=== PATIENT | female | born 1945 | race Asian ===

== ENCOUNTER 2016-10-02 08:34 | Inpatient (IN) | payer OTHER ==
[~2016-10-02] VITALS: Ht 152.4 cm; Wt 66.6 kg
[2016-10-02] VITALS (7 sets, daily range): BP systolic 132–146; BP diastolic 64–79; PULSE 70–78; RESP 15–25; TEMP 98; Ht 152.4 cm; Wt 66.6 kg
[2016-10-02] MEDS ORDERED: ASPIRIN 325 MG TAB PO STA (09:01)
[2016-10-02] MEDS ORDERED: LEVALBUTEROL (NEB) 1.25 MG/0.5 ML AMP INH STA (09:04)
[2016-10-02 09:24] LABS: BASOPHIL # 0.1 10^3/ul (0.0-0.1); BASOPHILS % 0.9 % (0.0-2.0); EOSINOPHILS % 0.4 % (0.0-7.0); HEMATOCRIT 36.9 % (37.0-47.0); HEMOGLOBIN 12.5 g/dl (12.0-16.0); MEAN CORPUSCULAR HEMOGLOBIN 32.2 pg (29.0-33.0); MEAN CORPUSCULAR HGB CONC 33.9 g/dl (32.0-37.0); MEAN CORPUSCULAR VOLUME 95.1 fl (82.0-101.0); MONOCYTE # 0.5 10^3/ul (0.3-0.9); MONOCYTES % 7.4 % (0.0-11.0); NEUTROPHILS % 76.2 % (39.0-77.0); PLATELET COUNT 205 10^3/UL (140-415); RED BLOOD COUNT 3.88 10^6/ul (4.20-5.40); RED CELL DISTRIBUTION WIDTH 14.1 % (11.5-14.5); WHITE BLOOD COUNT 6.8 10^3/ul (4.8-10.8)
[2016-10-02] MEDS ORDERED: ENOXAPARIN 80 MG/0.8 ML SYG SC SCH (09:30)
[2016-10-02] MEDS ORDERED: DILTIAZEM 25 MG INJ IV ONE (09:30)
[2016-10-02] MEDS: DILTIAZEM-D5W 125MG/125ML DRIP 125 ML IV SCH (09:36)
--- NOTE | 2016-10-02 09:42 | RADRPT ---
PROCEDURE: XR Chest. CLINICAL INDICATION: Chest pain , CVA TECHNIQUE: Single frontal view of the chest was obtained COMPARISON: None FINDINGS: The heart is enlarged. The thoracic aorta is calcified. The lungs are clear. There is no pleural effusion or pneumothorax. RPTAT: AA IMPRESSION: Moderate cardiomegaly. Calcified aorta consistent with atherosclerotic disease. .Grover Gerardo MD, MD Date Time Electronically viewed and signed by .Grover Gerardo MD, on 10/02/2016 09:42 .S/
[2016-10-02 09:50] LABS: ALBUMIN 4.2 g/dl (3.3-4.9); ALBUMIN/GLOBULIN RATIO 1.13; BILIRUBIN,INDIRECT 0.9 mg/dl (0-1.1); BILIRUBIN,TOTAL 0.9 mg/dl (0.2-1.3); CALCIUM 8.9 mg/dl (8.4-10.2); POTASSIUM 4.9 mmol/L (3.5-5.1); TOTAL PROTEIN 7.9 g/dl (6.1-8.1)
[2016-10-02 10:05] LABS: TROPONIN-I 7.52 ng/ml (0.00-0.12)
[2016-10-02 10:18] LABS: INR 1.07; PROTIME 13.9 Sec (12.2-14.2); PT RATIO 1.1
--- NOTE | 2016-10-02 11:00 | RADRPT ---
PROCEDURE: CT brain without contrast CLINICAL INDICATION: Generalized weakness, possible stroke, right vision loss TECHNIQUE: CT of the brain without contrast performed on a multidetector CT scanner, with multiplan ar reformats. One or more of the following dose reduction techniques were used: Automated exposure control, adjustment in mA and / or kV according to patient size, use of iterative reconstructive melanie hnique. CTDIvol = 44 mGy; DLP = 630 mGy-cm. 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 No acute intracranial hemorrhage is identified. No ext ra-axial fluid collection is seen. No significant mass effect or midline shift is identified. The ventricles and sulci are mild to moderately enlarged compatible with volume loss. There is a small chronic cortical infarct in the right parietal lobe. Chronic lacunar infarcts are identified in the left guerra radiata region. There are mild areas of hypodensity in the periventri cular - deep white matter which are nonspecific but suggestive of chronic small vessel ischemic cerda ges. Atherosclerotic calcifications of the proximal intracranial arteries are noted. Calvarium and skull base are intact. Bilateral sphenoid sinus mucosal thickening noted. IMPRESSION: 1. 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 Further evaluation with MRI is advised. 2. No acute intracranial hemorrhage. 3. Small chronic right parietal infarct, and chronic left guerra radiata lacunar infarcts. 4. Mild to moderate volume loss, with mild chronic small vessel ischemic changes. Results called to Dr. Cramer at 10:55 a.m., 10/02/2016. RPTAT: VV .Kenneth Cummings MD, Date Time Electronically viewed and signed by .Kenneth Cummings MD, on 10/02/2016 11:00 .O/
--- NOTE | 2016-10-02 11:40 | ERA ---
ER Documentation Chief Complaint Date/Time DATE: 10/02/16 TIME: 11:34 Chief Complaint pt bib family with c/o "fast breathing, vision problems, not feeling well" HPI This is a 70-year-old female who complains that she had some right eye visual loss 2-3 days ago. She says things look blurry and somewhat hazy. She is also having palpitations off and on for the past 3-4 days. She says in general she does not feel well. She has had no cough denies any chest pain no abdominal pain no nausea vomiting diarrhea. Patient says she has heart problems but does not know what they are. The patient and family deny any known arrhythmias. She denies any speech change or focal distal neurological complaints such as weakness or numbness in her extremities. ROS All systems reviewed and are negative except as per history of present illness. Allergies Allergies: Coded Allergies: No Known Allergy (Unverified , 10/02/16) PMhx/Soc Hx Alcohol Use: No Hx Substance Use: No Hx Tobacco Use: No Smoking Status: Never smoker FmHx Family History: No coronary disease Physical Exam Vitals Vital Signs Date Time Temp Pulse Resp B/P Pulse Ox O2 Delivery O2 Flow Rate FiO2 10/02/16 11:07 2.0 10/02/16 11:07 75 18 96 Nasal Cannula 2.0 10/02/16 11:05 71 24 147/84 100 Nasal Cannula 2.0 10/02/16 10:35 68 24 162/75 100 Nasal Cannula 2.0 10/02/16 10:10 72 24 111/88 100 Nasal Cannula 2.0 10/02/16 09:41 Nasal Cannula 2 10/02/16 09:40 88 10/02/16 08:53 98.0 129 29 171/82 96 Room Air 10/02/16 08:38 98.0 62 28 148/72 94 Physical Exam Const: Well-developed, well-nourished Head: Atraumatic, normocephalic Eyes: Normal Conjunctiva, PERRLA, EOMI, normal sclera, no nystagmus, the right eye demonstrates blurry decreased vision ENT: Normal External Ears, Nose and Mouth, moist mucus membranes. Neck: Full range of motion. No meningismus, no lymphadenopathy. Resp: Clear to auscultation bilaterally, no wheezing, rhonchi, rales Cardio: Irregular rate and rhythm with a heart rate of 137, no murmurs, S1 S2 present Abd: Soft, non tender x 4, non distended. Normal bowel sounds, no guarding or rebound, no pulsitile abdominal masses or bruits Skin: No petechiae or rashes, no ecchymosis , no maculopapular rash Back: No midline or flank tenderness Ext: No cyanosis, or edema, FROM x 4, normal inspection, neurovascularly intact x 4 Neur: Awake and alert, STR 5/5 x 4, sensation intact x 4, no focal findings, cerebellum intact Psych: Normal Mood and Affect Result Diagram: 10/02/16 0915 10/02/16 0915 Results 24 hrs Laboratory Tests Test 10/02/16 09:15 10/02/16 09:34 White Blood Count 6.810^3/ul Red Blood Count 3.8810^6/ul Hemoglobin 12.5g/dl Hematocrit 36.9% Mean Corpuscular Volume 95.1fl Mean Corpuscular Hemoglobin 32.2pg Mean Corpuscular Hemoglobin Concent 33.9g/dl Red Cell Distribution Width 14.1% Platelet Count 20652^3/UL Mean Platelet Volume 10.0fl Neutrophils % 76.2% Lymphocytes % 15.0% Monocytes % 7.4% Eosinophils % 0.4% Basophils % 0.9% Nucleated Red Blood Cells % 0.0/100WBC Neutrophils # (Manual) 5.210^3/ul Lymphocytes # 1.010^3/ul Monocytes # 0.510^3/ul Eosinophils # 0.010^3/ul Basophils # 0.110^3/ul Nucleated Red Blood Cells # 0.010^3/ul Sodium Level 137mmol/L Potassium Level 4.9mmol/L Chloride Level 100mmol/L Carbon Dioxide Level 24mmol/L Anion Gap 18 Blood Urea Nitrogen 21mg/dl Creatinine 1.00mg/dl Glucose Level 101mg/dl Calcium Level 8.9mg/dl Total Bilirubin 0.9mg/dl Direct Bilirubin 0.00mg/dl Indirect Bilirubin 0.9mg/dl Aspartate Amino Transf (AST/SGOT) 68IU/L Alanine Aminotransferase (ALT/SGPT) 30IU/L Alkaline Phosphatase 64IU/L Troponin I 7.520ng/ml B-Type Natriuretic Peptide 6190PG/ML Total Protein 7.9g/dl Albumin 4.2g/dl Globulin 3.70g/dl Albumin/Globulin Ratio 1.13 Prothrombin Time 13.9Sec Prothrombin Time Ratio 1.1 INR International Normalized Ratio 1.07 Activated Partial Thromboplast Time 32.0Sec Current Medications Medications (Trade) Dose Ordered Sig/Jimena Route PRN Reason Start Time Stop Time Status Last Admin Dose Admin Aspirin (Aspirin) 325 mg ONCE STAT PO 10/02/16 09:01 10/02/16 09:04 DC 10/02/16 09:24 Diltiazem HCl 20 mg 20 mg ONCE ONCE IV 10/02/16 09:30 10/02/16 09:31 DC 10/02/16 09:26 Diltiazem HCl (Cardizem-D5W 125 Mg/125 ml Drip) 125 ml @ 0 mls/hr Q0M IV 10/02/16 09:30 10/02/16 09:36 Enoxaparin Sodium (Lovenox) 60 mg ONCE SC 10/02/16 09:30 10/02/16 09:29 Levalbuterol (Xopenex Neb) 1.25 mg ONCE STAT INH 10/02/16 09:04 10/02/16 09:05 DC 10/02/16 11:06 Procedures/MDM EKG: Rate/Rhythm: Atrial fibrillation with rapid ventricular response, left anterior fascicular block QRS, ST, QT: NORMAL AK, QRS, QT] Impression: A. fib with RVR PROCEDURE: CT brain without contrast CLINICAL INDICATION: Generalized weakness, possible stroke, right vision loss TECHNIQUE: CT of the brain without contrast performed on a multidetector CT scanner, with multiplanar reformats. One or more of the following dose reduction techniques were used: Automated exposure control, adjustment in mA and / or kV according to patient size, use of iterative reconstructive technique. CTDIvol = 44 mGy; DLP = 630 mGy-cm. COMPARISON: None available FINDINGS: There is an area of loss of moctezuma-white differentiation in the left occipital lobe in the TEARER territory, suspicious for an acute/recent infarct. No acute intracranial hemorrhage is identified. No extra-axial fluid collection is seen. No significant mass effect or midline shift is identified. The ventricles and sulci are mild to moderately enlarged compatible with volume loss. There is a small chronic cortical infarct in the right parietal lobe. Chronic lacunar infarcts are identified in the left guerra radiata region. There are mild areas of hypodensity in the periventricular - deep white matter which are nonspecific but suggestive of chronic small vessel ischemic changes. Atherosclerotic calcifications of the proximal intracranial arteries are noted. Calvarium and skull base are intact. Bilateral sphenoid sinus mucosal thickening noted. IMPRESSION: 1. Findings suspicious for acute/recent infarct in the left occipital lobe/TEARER territory. Further evaluation with MRI is advised. 2. No acute intracranial hemorrhage. 3. Small chronic right parietal infarct, and chronic left guerra radiata lacunar infarcts. 4. Mild to moderate volume loss, with mild chronic small vessel ischemic changes. Results called to Dr. Hayes at 10:55 a.m., 10/02/2016. RPTAT: VV .Kenneth Cummings MD, MD Date Time Electronically viewed and signed by .Kenneth Cummings MD, MD on 10/02/2016 11:00 .O/ CC: DARION HAYES DO PROCEDURE: XR Chest. CLINICAL INDICATION: Chest pain , CVA TECHNIQUE: Single frontal view of the chest was obtained COMPARISON: None FINDINGS: The heart is enlarged. The thoracic aorta is calcified. The lungs are clear. There is no pleural effusion or pneumothorax. RPTAT: AA IMPRESSION: Moderate cardiomegaly. Calcified aorta consistent with atherosclerotic disease. .Grover Gerardo MD, MD Date Time Electronically viewed and signed by .Grover Gerardo MD, MD on 10/02/2016 09: 42 .S/ CC: DARION HAYES DO Patient was given aspirin and Lovenox as well as Cardizem IV bolus and drip to control her heart rate. Patient is in A. fib and likely had a clot that was dislodged and went into her left occipital lobe creating the infarct. The patient's troponin is elevated however she denies any recent chest pain. This may just be from cardiac strain from being in A. fib for 3 or 4 days., And a rapid ventricular response. We will admit the patient for anticoagulation, she will need a SABRINA/cardiac echo , rate control for A. fib Critical Care Time: 35 minutes Treatments/Evaluations: Close monitoring and treatment of unstable vital signs, cardiorespiratory, and neurologic status, while maintaining tight balance of fluid, respiratory, and cardiac interventions. This time includes discussing the case with the patient and the patient's family. This time does not include all procedures stated elsewhere in this record. This time also includes reviewing old records, labs and radiological studies. This time includes examining and re-examining the patient. Additionally, this time also includes arranging care with admitting and consulting physicians. Departure Diagnosis: Primary Impression: Atrial fibrillation with rapid ventricular response Additional Impressions: Stroke Qualified Code: I63.40 - Cerebrovascular accident (CVA) due to embolism of cerebral artery Myocardial infarction Qualified Code: I21.4 - Non-ST elevation (NSTEMI) myocardial infarction Condition: DARION Aguilera DO Oct 02, 2016 11:40
[2016-10-02] MEDS ORDERED: SOD CHLORIDE 0.9% 1,000 ML IV SCH (13:08)
[2016-10-02] MEDS ORDERED: ACETAMINOPHEN 325 MG TAB PO PRN (13:30)
[2016-10-02] MEDS ORDERED: ONDANSETRON 4 MG INJ IV PRN ×2 (13:30→15:00)
[2016-10-02 13:31] LABS: CK-MB 20.3 ng/ml (0.0-2.4)
[2016-10-02] MEDS ORDERED: FUROSEMIDE 20 MG INJ IV ONE (14:30)
[2016-10-02] MEDS ORDERED: HEPARIN 1000 UNITS/ML 10 ML INJ IV PRN (14:30)
[2016-10-02] MEDS ORDERED: CLOP75TA27 PO (14:37)
[2016-10-02] MEDS ORDERED: TEMA15CA PO (14:37)
[2016-10-02] MEDS ORDERED: SIMV20TA PO (14:38)
[2016-10-02] MEDS ORDERED: DEXTROSE 5%-0.45% NACL 1,000 ML IV SCH (14:54)
--- NOTE | 2016-10-02 14:58 | CONS ---
Date/Time of Note Date/Time of Note DATE: 10/02/16 TIME: 14:46 Assessment/Plan Assessment/Plan Additional Assessment/Plan CVA, likely embolic Atrial fibrillation with rapid ventricular rates Non-ST elevation KS -Patient with newly diagnosed atrial fibrillation and as per family no known history of any cardiac issues in the past. Given CVA is likely embolic and patient also with concurrent myocardial infarction, if no contraindication, patient would benefit from anticoagulation. Patient has been given Lovenox this morning. Would start IV heparin therapy without a bolus if no contraindication. Continue aspirin therapy, high-dose statin therapy, beta- jennifer for heart rate control. Check echocardiogram, telemetry monitoring, serial cardiac enzymes, carotid Dopplers. Would give 1 dose of IV diuretics at the current time. Awaiting neurology evaluation. Consultation Date/Type/Reason Admit Date/Time Type of Consultation: cv Reason for Consultation Elevated troponin Hx of Present Illness This is a 70-year-old female who presents to the emergency room with multiple complaints. As per the grandson at bedside who is translating and lives with the patient, patient with symptoms of palpitations over the past 4-5 days and shortness of breath. Denies any chest pain or chest discomfort. Symptoms have been off and on over the past 4-5 days. Today, patient also with vision loss upon waking up. Because of the above symptoms, patient came to the emergency room for further evaluation and care. At the current time, she is feeling better. She still complains of vision loss but denies any chest discomfort. Shortness of breath has improved as well. Her palpitations have improved after therapy in the emergency room. On laboratory studies, patient with elevated troponin and for this reason cardiology consultation was requested. 12 point review of systems was performed with all pertinent positives and negatives mentioned above and all else is negative Past Medical History Medical History: high cholesterol Family History Significant Family History: no pertinent family hx Social History Alcohol Use: none Smoking Status: Never smoker Drug Use: none Other Social History Lives with family Exam/Review of Systems Vital Signs Vitals Vital Signs Date Time Temp Pulse Resp B/P Pulse Ox O2 Delivery O2 Flow Rate FiO2 10/02/16 14:06 74 18 141/82 100 Room Air 10/02/16 11:07 2.0 10/02/16 08:53 98.0 Exam Follows commands, no apparent distress, on facemask Constitutional: alert Head: normocephalic Respiratory: other (Coarse breath sounds bilaterally with minimal and expiratory wheezing) Cardiovascular: irregular rhythm, other (S1-S2 heard), systolic murmur Gastrointestinal: bowel sounds, non-tender, other (No guarding), soft Extremities: edema (Trace) Results Result Diagram: 10/02/1615 10/02/1615 Results 24 hrs Laboratory Tests Test 10/02/16 09:15 10/02/16 09:34 White Blood Count 6.8 Red Blood Count 3.88 L Hemoglobin 12.5 Hematocrit 36.9 L Mean Corpuscular Volume 95.1 Mean Corpuscular Hemoglobin 32.2 Mean Corpuscular Hemoglobin Concent 33.9 Red Cell Distribution Width 14.1 Platelet Count 205 Mean Platelet Volume 10.0 Neutrophils % 76.2 Lymphocytes % 15.0 Monocytes % 7.4 Eosinophils % 0.4 Basophils % 0.9 Nucleated Red Blood Cells % 0.0 Neutrophils # (Manual) 5.2 Lymphocytes # 1.0 Monocytes # 0.5 Eosinophils # 0.0 Basophils # 0.1 Nucleated Red Blood Cells # 0.0 Sodium Level 137 Potassium Level 4.9 Chloride Level 100 Carbon Dioxide Level 24 Anion Gap 18 H Blood Urea Nitrogen 21 H Creatinine 1.00 Glucose Level 101 Calcium Level 8.9 Total Bilirubin 0.9 Direct Bilirubin 0.00 Indirect Bilirubin 0.9 Aspartate Amino Transf (AST/SGOT) 68 H Alanine Aminotransferase (ALT/SGPT) 30 Alkaline Phosphatase 64 Creatine Kinase 391 H Creatinine Kinase MB (Mass) 20.30 H Troponin I 7.520 *H B-Type Natriuretic Peptide 6190 H Total Protein 7.9 Albumin 4.2 Globulin 3.70 H Albumin/Globulin Ratio 1.13 Prothrombin Time 13.9 Prothrombin Time Ratio 1.1 INR International Normalized Ratio 1.07 Activated Partial Thromboplast Time 32.0 Medications Medications Current Medications Diltiazem HCl (Cardizem-D5W 125 Mg/125 ml Drip) 125 ml @ 0 mls/hr Q0M IV Last administered on 10/02/16 09:36; Admin Dose 5 MLS/HR; Start 10/02/16 at 09:30 Enoxaparin Sodium (Lovenox) 60 mg ONCE SC Last administered on 10/02/16 09:29 ; Admin Dose 60 MG; Start 10/02/16 at 09:30; Stop 10/02/16 at 19:00 Miscellaneous Information (* Miscellaneous Pharmacy Order) DC previous hepa... ONCE ONCE XX ; Start 10/02/16 at 14:30; Stop 10/02/16 at 14:31; Status UNV Aspirin (Aspirin) 81 mg DAILY PO ; Start 10/03/16 at 09:00 Atorvastatin Calcium (Lipitor) 80 mg HS PO ; Start 10/02/16 at 21:00 Metoprolol Tartrate (Lopressor) 25 mg BID PO ; Start 10/02/16 at 21:00 Procedures Procedures ECG demonstrates atrial fibrillation at 103 bpm, QRS 82 ms, nonspecific T-wave abnormalities Mayito Bull DO Oct 02, 2016 14:57
[2016-10-02] MEDS ORDERED: hydrALAzine 20 MG INJ IV PRN (15:00)
[2016-10-02] MEDS ORDERED: NACL 0.9% 3 ML SYG IV SCH (15:00)
[2016-10-02] MEDS ORDERED: morphine 2 MG INJ IV PRN (15:00)
[2016-10-02] MEDS: PANTOPRAZOLE 40 MG INJ IV SCH (15:17)
--- NOTE | 2016-10-02 15:26 | HP ---
Date/Time of Note Date/Time of Note DATE: 10/02/16 TIME: 15:10 Assessment/Plan VTE Prophylaxis VTE Prophylaxis Intervention: heparin Lines/Catheters IV [facility]from [facility] [place] Assessment/Plan Chief Complaint/Hosp Course Patient is a 70-year-old high female who presents to [facility] complaining of palpitations and right eye blurriness, found to have subacute CVA and NSTEMI. Problem list and assessment Non-ST elevated LA Left occipital lobe\ART MODEL CVA, acute versus subacute Atrial fibrillation with RVR, controlled New onset right eye vision loss, resolving Elevated troponin Elevated BNP Small chronic right parietal infarct Chronic left guerra radiata lacunar infarct Plan -Cardiology and neurology has been consulted. Heparin drip and serial troponins as well as imaging has been ordered by cardiology. Neurology input also appreciated, MRI and MRA ordered. -Patient's A. fib with RVR, on heparin, rate controlled on diltiazem drip, heading to the ICU -N.p.o. until patient passes swallow study -Continue home meds as able -Starting coronary artery disease medications per cardiology -To be cautious with fluids given elevated BNP -Vision is improving, monitor closely -Bilateral sphenoid sinus mucosal thickening noted, will correlate and possibly start antibiotics for possible acute sinusitis Problems: HPI/ROS Admit Date/Time Admit Date/Time Hx of Present Illness Patient is a 70-year-old Sharad female who presents with a past medical history of hypertension and dyslipidemia complaining of new onset right-sided blurry vision as well as palpitations on and off for the past 4-5 days. Patient according to family members has no history of heart palpitations and does not know any other of her medications or her medical conditions. Patient did have some medications at bedside and is able to provide the name of her primary care provider,Dr. Goldberg. The patient states that although the palpitations have been on and off, she has no chest pain at this time, also states that patient's new onset blurry vision which began approximately 4 AM this morning has significantly improved, however patient is not able to see as clear as before still. Currently the patient is not short of breath, no chest pain, no nausea, no vomiting, no other acute complaints PMH: Hypertension, dyslipidemia, insomnia PSH: None Social: Denies smoking drinking or drugs Meds: Plavix 75 mg, simvastatin 20 mg, temazepam 15 mg as needed for sleep PMH/Family/Social Past Medical History Medical History: high cholesterol Social History Alcohol Use: none Smoking Status: Never smoker Drug Use: none Exam/Review of Systems Vital Signs Vitals Vital Signs Date Time Temp Pulse Resp B/P Pulse Ox O2 Delivery O2 Flow Rate FiO2 10/02/16 14:06 74 18 141/82 100 Room Air 10/02/16 11:07 2.0 10/02/16 08:53 98.0 Exam Exam Physical exam General: Patient is laying in bed and answers questions appropriately Mentation: Patient is alert and oriented 4, Head: Normocephalic atraumatic Eyes: EOMI, Neck: Supple, nontender, midline Respiratory: coarse to auscultation bilaterally. Cardiovascular: regular rate, no obvious murmurs Gastrointestinal: non-tender to palpation, bowel sounds heard. Neurological: Moves all extremities spontaneously, but R UE and LE is mildly weaker than L. Skin: No new skin lesions Labs Result Diagram: 10/02/1691410/02/16914 Medications Medications Current Medications Diltiazem HCl (Cardizem-D5W 125 Mg/125 ml Drip) 125 ml @ 0 mls/hr Q0M IV Last administered on 10/02/16 09:36; Admin Dose 5 MLS/HR; Start 10/02/16 at 09:30 Enoxaparin Sodium (Lovenox) 60 mg ONCE SC Last administered on 10/02/16 09:29 ; Admin Dose 60 MG; Start 10/02/16 at 09:30; Stop 10/02/16 at 19:00 Miscellaneous Information (* Miscellaneous Pharmacy Order) DC previous hepa... ONCE ONCE XX ; Start 10/02/16 at 14:30; Stop 10/02/16 at 14:31; Status UNV Aspirin (Aspirin) 81 mg DAILY PO ; Start 10/03/16 at 09:00 Atorvastatin Calcium (Lipitor) 80 mg HS PO ; Start 10/02/16 at 21:00 Metoprolol Tartrate 25 mg 25 mg BID PO ; Start 10/02/16 at 21:00 Dextrose/Sodium Chloride (D5-1/2ns) 1,000 ml @ 40 mls/hr Q24H IV ; Start at 14:54; Status UNV Ondansetron HCl (Zofran Inj) 4 mg Q6H PRN IV NAUSEA AND/OR VOMITING; Start at 15:00 Morphine Sulfate (morphine) 2 mg Q4H PRN IV SEVERE PAIN LEVEL 7-10; Start 10/02 at 15:00 Pantoprazole (Protonix Iv) 40 mg DAILY@06 IV ; Start 10/02/16 at 15:00 Hydralazine HCl (Apresoline) 10 mg Q4H PRN IV SBP >160; Start 10/02/16 at 15:00 Clopidogrel Bisulfate (plaVIX) 75 mg DAILY PO ; Start 10/03/16 at 09:00; Status UNV Miscellaneous Information 15 mg HS PRN PO INSOMNIA; Start 10/02/16 at 15:00; Status UNV MITZY STARKEY Oct 02, 2016 15:20
--- NOTE | 2016-10-02 16:23 | RADRPT ---
PROCEDURE: US Carotids. CLINICAL INDICATION: bruit , CVA TECHNIQUE: Multiple sonographic of the carotid bifurcation region and vertebral arteries were obta ined utilizing moctezuma scale, duplex and color-flow imaging. The images were reviewed on a PACS worksta tion. COMPARISON: No prior studies are available for comparison. FINDINGS: Evaluation of the right carotid bifurcation region reveals no significant calcific atherosclerotic d isease. . There is mild intimal thickening. Evaluation of the left carotid bifurcation region reveals no significant calcific atherosclerotic di sease. . There is mild intimal thickening. There is antegrade flow within the vertebral arteries bilaterally. RIGHT CAROTID MEASUREMENTS: Common Carotid Tdjzbw98.9 (cm/sec) Internal Carotid Artery - [id number] (cm/sec) Internal Carotid Artery - mid41.7 (cm/sec) Internal Carotid Artery - ediqfu58.8 (cm/sec) Internal Carotid/Common Carotid1.27 LEFT CAROTID MEASUREMENTS: Common Carotid Aibezh35 (cm/sec) Internal Carotid Artery - qzydqctz64.2 (cm/sec) Internal Carotid Artery - mid73.7 (cm/sec) Internal Carotid Artery - .4 (cm/sec) Internal Carotid/Common Carotid2.35 RPTAT: AA IMPRESSION: Increased internal carotid to common carotid ratio on the left, with no significantly increased velo cities. A 50-69% stenosis cannot be excluded. Further evaluation with CT angiogram is recommended. - validated velocity measurements with angiographic measurements, velocity criteria are extrapolat ed from diameter data as defined by the Society of Radiologists in Ultrasound Consensus Conference R adiology 2003; 229;340-346. This study does indirectly reference the measurement of the distal ICA diameter as the denominator for stenosis measurement. Normal antegrade flow in the vertebral arteries bilaterally. .Grover Gerardo MD, MD Date Time Electronically viewed and signed by .Grover Gerardo MD, MD on 10/02/2016 16:23 .S/
--- NOTE | 2016-10-02 16:58 | RADRPT ---
Echocardiogram Report Patient Name: MERY MATHEWS Gender: Female Date: 1945 Study Date: 02-Oct-2016 Director Of Physical Security: Yury Escamilla [facility] Location: [facility] Ref. Physician: MAYITO BULL Quality: Good Procedures: Transthoracic echocardiogram with complete 2D, M-Mode, and doppler examination. Indications: Myocardial Infarction. 2D/M Mode Doppler Measurement Value Normal Ranges Measurement Value Normal Ranges LVIDd 2D 4.9 3.5 - 5.6 cm AV Peak Isaias 1.4 m/sec LVIDs 2D 3.2 2.1 - 4.1 cm AV Peak PG 8.0 mmHg LVPWd 2D 1.1 0.6 - 1.1 cm AI Peak PG 85.3 mmHg IVSd 2D 1.2 0.6 - 1.1 cm AI Peak Isaias 4.6 m/sec AoR Diam 2D 2.4 2.0 - 3.7 cm AI PHT 472.4 msec EDV 2D 112.2 cm3 LVOT Peak Isaias 0.7 m/sec ESV 2D 32.2 cm3 LVOT Peak PG 2.2 mmHg LA Dimen 2D 4.5 2.3 - 4.0 cm TR Peak Isaias 2.8 m/sec TR Peak PG 31.8 mmHg RVSP 40.0 mmHg Findings Left Ventricle: Normal left ventricular cavity size. Mild concentric left ventricular hypertrophy. Moderate to severe left ventricular systolic dysfunction. Ejection fraction is visually estimated at 35 %. Abnormal Diastolic Function. Right Ventricle: Normal right ventricular size. Normal right ventricular systolic function. Left Atrium: There is moderate enlargement of left atrium. Right Atrium: There is mild enlargement of right atrium. Mitral Valve: Mitral valve leaflets appear mildly thickened. Mild mitral annular calcification. Mild to moderate mitral valve regurgitation. Aortic Valve: No hemodynamically significant aortic stenosis by doppler. Aortic cusps appear mildly calcified. Mild aortic valve regurgitation. Tricuspid Valve: Normal appearance of the tricuspid valve. Estimated peak PA systolic pressure 40 mmHg. There is mild to moderate tricuspid regurgitation. Pulmonic Valve: Normal pulmonic valve appearance. There is mild pulmonic regurgitation. Pericardium: Normal pericardium with no significant pericardial effusion. Aorta: Normal aortic root. IVC: Normal size and no respiratory collapse consistent with elevated right atrial pressure. Conclusions 1.Normal left ventricular cavity size. Mild concentric left ventricular hypertrophy. Moderate to severe left ventricular systolic dysfunction. Ejection fraction is visually estimated at 35 %. Abnormal Diastolic Function. 2.Normal right ventricular size. Normal right ventricular systolic function. 3.There is moderate enlargement of left atrium. 4.There is mild enlargement of right atrium. 5.Mild to moderate mitral valve regurgitation. 6.No hemodynamically significant aortic stenosis by doppler. Mild aortic valve regurgitation. 7.Estimated peak PA systolic pressure 40 mmHg. There is mild to moderate tricuspid regurgitation. 8.There is mild pulmonic regurgitation. 9.Normal pericardium with no significant pericardial effusion. Electronically Signed By: Mayito Bull 02-Oct-2016 16:57:45 -0700 Patient Name: MERY MATHEWS Study Date: 02-Oct-2016 [id number]
[2016-10-02] MEDS ORDERED: LEVOFLOXACIN 500MG/D5W (PMX) 100 ML IVPB ONE (17:00)
[2016-10-02 17:01] LABS: BASOPHIL # 0.1 10^3/ul (0.0-0.1); EOSINOPHILS % 0.4 % (0.0-7.0); HEMATOCRIT 36.8 % (37.0-47.0); HEMOGLOBIN 12.6 g/dl (12.0-16.0); LYMPHOCYTES # 1.5 10^3/ul (0.8-2.9); LYMPHOCYTES % 21.8 % (15.0-51.0); MEAN CORPUSCULAR HGB CONC 34.2 g/dl (32.0-37.0); MEAN CORPUSCULAR VOLUME 96.3 fl (82.0-101.0); MONOCYTE # 0.5 10^3/ul (0.3-0.9); MONOCYTES % 7.7 % (0.0-11.0); NEUTROPHILS % 68.8 % (39.0-77.0); PLATELET COUNT 205 10^3/UL (140-415); RED BLOOD COUNT 3.82 10^6/ul (4.20-5.40); RED CELL DISTRIBUTION WIDTH 14.3 % (11.5-14.5); WHITE BLOOD COUNT 6.9 10^3/ul (4.8-10.8)
[2016-10-02 17:17] LABS: INR 1.17; PARTIAL THROMBOPLASTIN TIME 38.7 Sec (25.0-35.0); PT RATIO 1.2
[2016-10-02 17:31] LABS: CK-MB 48.4 ng/ml (0.0-2.4)
[2016-10-02 17:37] LABS: TROPONIN-I 19.1 ng/ml (0.00-0.12)
[2016-10-02] MEDS: HEPARIN 25000 UNITS/250 ML 250 ML IV SCH (18:58)
[2016-10-02] MEDS ORDERED: NON-FORMULARY/PATIENT OWN MED (Simvastatin* (Zocor*) 20 MG) PO SCH (21:00)
[2016-10-02] MEDS: METOPROLOL 25 MG TAB PO SCH (23:18)
[2016-10-02] MEDS: ATORVASTATIN 80 MG TAB PO SCH (23:19)
[2016-10-03] VITALS (68 sets, daily range): BP systolic 107–153; BP diastolic 45–106; PULSE 56–90; RESP 15–35
[2016-10-03] MEDS: ZOLPIDEM 5 MG TAB PO PRN ×2 (02:02→22:22)
[2016-10-03] MEDS: PANTOPRAZOLE 40 MG INJ IV SCH (05:17)
[2016-10-03] MEDS: DILTIAZEM-D5W 125MG/125ML DRIP 125 ML IV SCH (05:18)
[2016-10-03 05:49] LABS: BASOPHIL # 0.1 10^3/ul (0.0-0.1); BASOPHILS % 0.9 % (0.0-2.0); EOSINOPHILS % 0.6 % (0.0-7.0); HEMATOCRIT 35.2 % (37.0-47.0); HEMOGLOBIN 11.8 g/dl (12.0-16.0); LYMPHOCYTES # 1.2 10^3/ul (0.8-2.9); LYMPHOCYTES % 18.5 % (15.0-51.0); MEAN CORPUSCULAR HEMOGLOBIN 31.7 pg (29.0-33.0); MEAN CORPUSCULAR HGB CONC 33.5 g/dl (32.0-37.0); MEAN CORPUSCULAR VOLUME 94.6 fl (82.0-101.0); MEAN PLATELET VOLUME 10.5 fl (7.4-10.4); MONOCYTE # 0.5 10^3/ul (0.3-0.9); MONOCYTES % 7.6 % (0.0-11.0); NEUTROPHILS % 72.2 % (39.0-77.0); PLATELET COUNT 216 10^3/UL (140-415); RED BLOOD COUNT 3.72 10^6/ul (4.20-5.40); RED CELL DISTRIBUTION WIDTH 14.4 % (11.5-14.5); WHITE BLOOD COUNT 6.6 10^3/ul (4.8-10.8)
[2016-10-03 06:06] LABS: CK-MB 27.8 ng/ml (0.0-2.4)
[2016-10-03 06:13] LABS: ALBUMIN 3.7 g/dl (3.3-4.9); ALBUMIN/GLOBULIN RATIO 1.19; BILIRUBIN,INDIRECT 1.5 mg/dl (0-1.1); BILIRUBIN,TOTAL 1.5 mg/dl (0.2-1.3); CALCIUM 8.8 mg/dl (8.4-10.2); CHOL/HDL RATIO 1.9 RATIO; POTASSIUM 4.4 mmol/L (3.5-5.1); TOTAL PROTEIN 6.8 g/dl (6.1-8.1)
[2016-10-03 06:30] LABS: TROPONIN-I 16.7 ng/ml (0.00-0.12)
[2016-10-03 06:56] LABS: THYROID STIMULATING HORMONE 3.47 MIU/L (0.465-4.680)
[2016-10-03 07:14] LABS: ALBUMIN 3.9 g/dl (3.3-4.9); BILIRUBIN,INDIRECT 1.4 mg/dl (0-1.1); BILIRUBIN,TOTAL 1.4 mg/dl (0.2-1.3); TOTAL PROTEIN 7.2 g/dl (6.1-8.1)
[2016-10-03] MEDS ORDERED: CLOPIDOGREL 75 MG TAB PO SCH (09:00)
[2016-10-03] MEDS: HEPARIN 25000 UNITS/250 ML 250 ML IV SCH (09:25)
--- NOTE | 2016-10-03 10:47 | RADRPT ---
PROCEDURE: MR Brain without contrast. CLINICAL INDICATION: Neurologic deficit TECHNIQUE: An MRI of the brain was performed on a high-resolution MR scanner utilizing the followi ng sequences: Sagittal and axial T1 weighted, axial T2 weighted, axial FLAIR, coronal GRE, and axial diffusion weighted with ADC mapping. Images were reviewed high-resolution PACS workstation. No con trast was administered. COMPARISON: Correlation head CT yesterday FINDINGS: No acute parenchymal hemorrhage or midline shift. Cortical diffusion restriction of the bilateral oc cipital lobes and right posterior temporal lobe. Additional smaller scattered foci of diffusion res triction identified in the left frontal lobe, bilateral parietal lobes, and bilateral cerebellar hem ispheres. Chronic lacunar infarcts of the left guerra radiata are seen. Chronic right parietal apurva ical infarct. Scattered subcortical, deep, and periventricular white matter T2-weighted/FLAIR hyperintensities are consistent with chronic microvascular ischemic disease. No suspicious parenchymal hypointense sign al abnormalities are seen on the GRE images to suggest the presence of blood degradation products. The ventricles are stable size with mild volume loss noted.. Bilateral sphenoid sinus mucosal thickening. IMPRESSION: Acute cortical infarcts of the bilateral occipital lobes and right posterior temporal lobe with patricia tional smaller acute infarcts in the left frontal lobe, bilateral parietal lobes, and bilateral cere bellar hemispheres. The findings may be due to a recent embolic event. Chronic microvascular disease. Chronic right parietal cortical infarct and chronic left guerra radiata lacunar infarcts. Mild volume loss. A call report was made to LIBRARIAN ASSISTANT MANUEL at 10/03/2016 10:45:13 AM. RPTAT: AA .Jeffrey Hameed MD, Date Time Electronically viewed and signed by .Jeffrey Hameed MD, MD on 10/03/2016 10:47 .T/
[2016-10-03] MEDS: METOPROLOL 25 MG TAB PO SCH ×2 (11:01→20:26)
[2016-10-03] MEDS: ASPIRIN 81 MG TAB PO SCH (11:01)
--- NOTE | 2016-10-03 11:23 | RADRPT ---
PROCEDURE: MRA Head without contrast. CLINICAL INDICATION: Neurologic deficit TECHNIQUE: MRA of the brain was performed utilizing 3-D [id number] imaging without intravenous contrast. Source and MIP images were reviewed. COMPARISON: None available. FINDINGS: Limited flow signal in the left internal carotid artery, left MCA and bilateral CELIO. No significant focal proximal stenosis or large vessel occlusion of the right intracranial ICA or right MCA. There is no significant focal proximal stenosis or large vessel occlusion of the bilateral intradural hitesh tebral artery segments, basilar artery, or bilateral SUPERVISING BAILIFF. No aneurysm is identified. IMPRESSION: Limited flow signal in the left internal carotid artery, left MCA and bilateral CELIO likely related t o proximal left ICA high-grade stenosis or occlusion. Consider CT angiogram head and neck for furthe r evaluation. No evidence of significant stenosis or large vessel occlusion of the posterior circulation. RPTAT: AA .Jeffrey Hameed MD, Date Time Electronically viewed and signed by .Jeffrey Hameed MD, on 10/03/2016 11:23 .T/
--- NOTE | 2016-10-03 14:34 | PN ---
Date/Time of Note Date/Time of Note DATE: 10/03/16 TIME: 14:28 Assessment/Plan VTE Prophylaxis VTE Prophylaxis Intervention: heparin Lines/Catheters IV [facility] Type [facility]from [facility] Peripheral IV Urinary Cath still in place: No Assessment/Plan Chief Complaint/Hosp Course Patient is a 70-year-old high female who presents to [facility] complaining of palpitations and right eye blurriness, found to have CVA and NSTEMI. Problem list and assessment Non-ST elevated SD Acute bilateral occipital lobe and right posterior temporal lobe infarct. Small acute infarcts in left frontal lobe, bilateral parietal lobes, and bilateral cerebral hemispheres. Atrial fibrillation with RVR, controlled New onset right eye vision loss, resolving Elevated troponin Elevated BNP Small chronic right parietal infarct Chronic left guerra radiata lacunar infarct sinus wall thickening, possible sinusitis Plan -Cardiology saw patient, started on heparin drip, due to distribution on MRI likely cardioembolic origin, echo has been done, troponins have elevated severely, however patient has no chest pain. Patient will need cardiac cath. On hold for now as patient is likely pending transfer. -Neurology also saw patient, suggested stopping Plavix, okay with heparin with aspirin. CT and MRI noted -MRA showed possible stenosis of the carotid artery, ultrasound carotid also showed evidence, CT angiogram will be held off as it will not change current management and may be done at transferred facility, risk of kidney damage with contrast noted will hold off for now. -Keep in the ICU as patient had severely elevated troponins, downtrending -Continue home medications as able -Monitor and repeat labs in the morning -levaquin for sinusitis Problems: Subjective 24 Hr Interval Summary Free Text/Dictation no acute complaints, R eye blurriness has improved from yesterday Exam/Review of Systems Vital Signs Vitals Vital Signs Date Time Temp Pulse Resp B/P Pulse Ox O2 Delivery O2 Flow Rate FiO2 10/03/16 13:15 78 15 117/100 98 10/03/16 13:00 Nasal Cannula 1.0 10/03/16 12:00 98.3 Intake and Output 10/02/16 10/02/16 10/03/16 15:00 23:00 07:00 Intake Total 12 ml 60.0 ml Output Total 350 ml Balance 12 ml -290.0 ml Exam Physical exam General: Patient is laying in bed and answers questions appropriately Mentation: Patient is alert and oriented 4, Head: Normocephalic atraumatic Eyes: EOMI, Neck: Supple, nontender, midline Respiratory: coarse to auscultation bilaterally. Cardiovascular: regular rate, no obvious murmurs Gastrointestinal: non-tender to palpation, bowel sounds heard. Neurological: Moves all extremities spontaneously, but R UE and LE is mildly weaker than L. Skin: No new skin lesions Results Result Diagram: 10/03/16 0456 10/03/16 0456 Results 24 hrs Laboratory Tests Test 10/02/16 16:55 10/03/16 00:48 10/03/16 03:15 10/03/16 04:56 White Blood Count 6.9 6.6 Red Blood Count 3.82 L 3.72 L Hemoglobin 12.6 11.8 L Hematocrit 36.8 L 35.2 L Mean Corpuscular Volume 96.3 94.6 Mean Corpuscular Hemoglobin 33.0 31.7 Mean Corpuscular Hemoglobin Concent 34.2 33.5 Red Cell Distribution Width 14.3 14.4 Platelet Count 205 216 Mean Platelet Volume 10.0 10.5 H Neutrophils % 68.8 72.2 Lymphocytes % 21.8 18.5 Monocytes % 7.7 7.6 Eosinophils % 0.4 0.6 Basophils % 1.0 0.9 Nucleated Red Blood Cells % 0.0 0.0 Neutrophils # (Manual) 4.7 4.8 Lymphocytes # 1.5 1.2 Monocytes # 0.5 0.5 Eosinophils # 0.0 0.0 Basophils # 0.1 0.1 Nucleated Red Blood Cells # 0.0 0.0 Prothrombin Time 15.0 H Prothrombin Time Ratio 1.2 INR International Normalized Ratio 1.17 Activated Partial Thromboplast Time 38.7 H > 180.0 *H 77.6 *H 47.9 H Creatine Kinase 644 #H 496 H Creatine Kinase Index 7.5 5.6 Creatinine Kinase MB (Mass) 48.40 H 27.80 H Troponin I 19.100 *H 16.700 *H Sodium Level 138 Potassium Level 4.4 Chloride Level 96 L Carbon Dioxide Level 27 Anion Gap 19 H Blood Urea Nitrogen 19 Creatinine 1.00 Glucose Level 93 Calcium Level 8.8 Total Bilirubin 1.5 H Direct Bilirubin 0.00 Indirect Bilirubin 1.5 H Aspartate Amino Transf (AST/SGOT) 116 H Alanine Aminotransferase (ALT/SGPT) 38 Alkaline Phosphatase 55 Total Protein 6.8 Albumin 3.7 Globulin 3.10 Albumin/Globulin Ratio 1.19 Triglycerides Level 66 Cholesterol Level 103 LDL Cholesterol, Calculated 37 HDL Cholesterol 53 Cholesterol/HDL Ratio 1.9 Thyroid Stimulating Hormone (TSH) 3.470 Free Thyroxine Index 2.21 Thyroxine (T4) 4.6 L Triiodothyronine (T3) Uptake 48.0 H Test 10/03/16 11:29 Activated Partial Thromboplast Time 54.3 H Medications Medications Current Medications Diltiazem HCl (Cardizem-D5W 125 Mg/125 ml Drip) 125 ml @ 0 mls/hr Q0M IV Last administered on 10/03/16 05:18; Admin Dose 2.5 MLS/HR; Start 10/02/16 at 09:30 Aspirin (Aspirin) 81 mg DAILY PO Last administered on 10/03/16 11:01; Admin Dose 81 MG; Start 10/03/16 at 09:00 Atorvastatin Calcium (Lipitor) 80 mg HS PO Last administered on 10/02/16 23:19 ; Admin Dose 80 MG; Start 10/02/16 at 21:00 Metoprolol Tartrate (Lopressor) 25 mg BID PO Last administered on 10/03/16 11: 01; Admin Dose 25 MG; Start 10/02/16 at 21:00 Ondansetron HCl (Zofran Inj) 4 mg Q6H PRN IV NAUSEA AND/OR VOMITING; Start at 15:00 Morphine Sulfate (morphine) 2 mg Q4H PRN IV SEVERE PAIN LEVEL 7-10; Start 10/02 at 15:00 Hydralazine HCl (Apresoline) 10 mg Q4H PRN IV SBP >160; Start 10/02/16 at 15:00 Zolpidem Tartrate 5 mg 5 mg HS PRN PO INSOMNIA Last administered on 10/03/16 02:02; Admin Dose 5 MG; Start 10/02/16 at 15:30 Levofloxacin/ Dextrose (Levaquin 250 Mg/ D5W 50 ml (Pmx)) 50 ml @ 50 mls/hr Q24H IVPB ; Start 10/03/16 at 17:00 Famotidine (Pepcid Iv) 20 mg DAILY IV ; Start 8/17/17 at 09:00 MITZY STARKEY 16, 2017 14:34
--- NOTE | 2016-10-03 14:36 | CONS ---
Date/Time of Note Date/Time of Note DATE: 10/03/16 TIME: 14:33 Assessment/Plan Assessment/Plan Additional Assessment/Plan CVA, likely embolic Atrial fibrillation with rapid ventricular rates, improved Cardiomyopathy with ejection fraction 35% Non-ST elevation [place] -Patient currently with down trending troponins. Denies chest pain or shortness of breath. MRI brain shows multiple areas of CVA likely secondary to embolic phenomenon. In discussion with our neurology colleagues, would continue anticoagulation with plan of transitioning heparin to Eliquis in the next few days. Continue aspirin therapy, high-dose statin, beta-jennifer for rate control once past the period of permissive hypertension, would switch Lopressor to Coreg and add JONAH inhibitor. Given patient with acute CVA and downtrending troponin with no further symptoms of shortness of breath or chest pain, the risks of cardiac catheterization at the current time outweigh the benefits. Consultation Date/Type/Reason Admit Date/Time Oct 02, 2016 at 13:09 Initial Consult Date Type of Consultation: cv 24 HR Interval Summary Free Text/Dictation Patient denies any shortness of breath, chest pain, palpitations. Vision is improving. Exam/Review of Systems Vital Signs Vitals Vital Signs Date Time Temp Pulse Resp B/P Pulse Ox O2 Delivery O2 Flow Rate FiO2 10/03/16 13:15 78 15 117/100 98 10/03/16 13:00 Nasal Cannula 1.0 10/03/16 12:00 98.3 Intake and Output 10/02/16 10/02/16 10/03/16 15:00 23:00 07:00 Intake Total 12 ml 60.0 ml Output Total 350 ml Balance 12 ml -290.0 ml Exam No apparent distress, family at bedside Constitutional: alert, oriented Head: normocephalic Respiratory: other (Coarse breath sounds bilaterally, no wheezing) Cardiovascular: irregular rhythm, other (S1-S2 heard) Gastrointestinal: bowel sounds, non-tender, soft Extremities: edema Results Result Diagram: 10/03/16 0456 10/03/16 0456 Results 24 hrs Laboratory Tests Test 10/02/16 16:55 10/03/16 00:48 10/03/16 03:15 10/03/16 04:56 White Blood Count 6.9 6.6 Red Blood Count 3.82 L 3.72 L Hemoglobin 12.6 11.8 L Hematocrit 36.8 L 35.2 L Mean Corpuscular Volume 96.3 94.6 Mean Corpuscular Hemoglobin 33.0 31.7 Mean Corpuscular Hemoglobin Concent 34.2 33.5 Red Cell Distribution Width 14.3 14.4 Platelet Count 205 216 Mean Platelet Volume 10.0 10.5 H Neutrophils % 68.8 72.2 Lymphocytes % 21.8 18.5 Monocytes % 7.7 7.6 Eosinophils % 0.4 0.6 Basophils % 1.0 0.9 Nucleated Red Blood Cells % 0.0 0.0 Neutrophils # (Manual) 4.7 4.8 Lymphocytes # 1.5 1.2 Monocytes # 0.5 0.5 Eosinophils # 0.0 0.0 Basophils # 0.1 0.1 Nucleated Red Blood Cells # 0.0 0.0 Prothrombin Time 15.0 H Prothrombin Time Ratio 1.2 INR International Normalized Ratio 1.17 Activated Partial Thromboplast Time 38.7 H > 180.0 *H 77.6 *H 47.9 H Creatine Kinase 644 #H 496 H Creatine Kinase Index 7.5 5.6 Creatinine Kinase MB (Mass) 48.40 H 27.80 H Troponin I 19.100 *H 16.700 *H Sodium Level 138 Potassium Level 4.4 Chloride Level 96 L Carbon Dioxide Level 27 Anion Gap 19 H Blood Urea Nitrogen 19 Creatinine 1.00 Glucose Level 93 Calcium Level 8.8 Total Bilirubin 1.5 H Direct Bilirubin 0.00 Indirect Bilirubin 1.5 H Aspartate Amino Transf (AST/SGOT) 116 H Alanine Aminotransferase (ALT/SGPT) 38 Alkaline Phosphatase 55 Total Protein 6.8 Albumin 3.7 Globulin 3.10 Albumin/Globulin Ratio 1.19 Triglycerides Level 66 Cholesterol Level 103 LDL Cholesterol, Calculated 37 HDL Cholesterol 53 Cholesterol/HDL Ratio 1.9 Thyroid Stimulating Hormone (TSH) 3.470 Free Thyroxine Index 2.21 Thyroxine (T4) 4.6 L Triiodothyronine (T3) Uptake 48.0 H Test 10/03/16 11:29 Activated Partial Thromboplast Time 54.3 H Medications Medications Current Medications Diltiazem HCl (Cardizem-D5W 125 Mg/125 ml Drip) 125 ml @ 0 mls/hr Q0M IV Last administered on 10/03/16t 05:18; Admin Dose 2.5 MLS/HR; Start 10/02/16 at 09:30 Aspirin (Aspirin) 81 mg DAILY PO Last administered on 10/03/16 11:01; Admin Dose 81 MG; Start 10/03/16 at 09:00 Atorvastatin Calcium (Lipitor) 80 mg HS PO Last administered on 10/02/16 23:19 ; Admin Dose 80 MG; Start 10/02/16 at 21:00 Metoprolol Tartrate (Lopressor) 25 mg BID PO Last administered on 10/03/16 11: 01; Admin Dose 25 MG; Start 10/02/16 at 21:00 Ondansetron HCl (Zofran Inj) 4 mg Q6H PRN IV NAUSEA AND/OR VOMITING; Start at 15:00 Morphine Sulfate (morphine) 2 mg Q4H PRN IV SEVERE PAIN LEVEL 7-10; Start 10/02 at 15:00 Hydralazine HCl (Apresoline) 10 mg Q4H PRN IV SBP >160; Start 10/02/16 at 15:00 Zolpidem Tartrate 5 mg 5 mg HS PRN PO INSOMNIA Last administered on 10/03/16 02:02; Admin Dose 5 MG; Start 10/02/16 at 15:30 Levofloxacin/ Dextrose (Levaquin 250 Mg/ D5W 50 ml (Pmx)) 50 ml @ 50 mls/hr Q24H IVPB ; Start 10/03/16 at 17:00 Famotidine (Pepcid Iv) 20 mg DAILY IV ; Start 10/04/16 at 09:00 Mayito Bull DO Oct 03, 2016 14:36
--- NOTE | 2016-10-03 15:46 | RADRPT ---
PROCEDURE: MRA Neck without contrast. CLINICAL INDICATION: Neurologic deficit TECHNIQUE: An MRA of the major cervical arteries was performed on a utilizing axial 3D time of fli t . No IV contrast was given as ordered. Source and MIPPED images were reviewed. COMPARISON: Correlation carotid neck ultrasound 10/02/2016 FINDINGS: The common carotid and vertebral arterial origins are obscured by artifact. No significant stenosis of the mid to distal segment of the bilateral common carotid arteries. No significant stenosis of the right cervical internal carotid artery. Absence of flow signal of the left cervical internal ca rotid artery. The visualized portions of the bilateral cervical vertebral arteries show normal flow signal. IMPRESSION: No flow signal seen within the proximal left internal carotid artery concerning for high-grade steno sis or occlusion. Consider CT angiogram head and neck for further evaluation. No other significant cervical arterial stenosis identified. RPTAT: AA .Jeffrey Hameed MD, Date Time Electronically viewed and signed by .Jeffrey Hameed MD, on 10/03/2016 11:28 .T/
--- NOTE | 2016-10-03 17:55 | CONS ---
Date/Time of Note Date/Time of Note DATE: 10/03/16 TIME: 17:47 Assessment/Plan Assessment/Plan Chief Complaint/Hosp Course 70 yo female with cardioembolic CVA, newly diagnosed afib with bilateral HIGHER EDUCATION ADMINISTRATOR territory infarcts , bilateral frontal and bilateral cerebellar on heparin drip and antiplatelets, NSTEMI, troponins now trending down. MRI Brain and MRA Head reviewed. Acute cortical infarcts of the bilateral occipital lobes and right posterior temporal lobe with additional smaller acute infarcts in the left frontal lobe, bilateral parietal lobes, and bilateral cerebellar hemispheres. The findings may be due to a recent embolic event. Chronic microvascular disease. Chronic right parietal cortical infarct and chronic left guerra radiata lacunar infarcts. Mild volume loss. Limited flow signal in the left internal carotid artery, left MCA and bilateral CELIO likely related to proximal left ICA high-grade stenosis or occlusion. Recommendations: continue heparin drip pTT 50-60 no bolus continue for a few days and close neurologic monitoring will transition to Apixaban ECHO LDL at goal, check HBA1C recommend checking CTA Head/Neck to evaluate for Left ICA stenosis although etiology of this stroke appears to be likely secondary to cardioembolism DVT ppx on heparin PT/OT/Speech c/w icu level monitoring Problems: Consultation Date/Type/Reason Admit Date/Time Oct 02, 2016 at 13:09 Date of Consultation: Oct 03, 2016 Type of Consultation: Neurology Reason for Consultation cva Referring Provider: MITZY STARKEY Hx of Present Illness 70 yo female admitted yesterday with palpitations 4-5 days with SOB, with right visual field loss upon awakening on the date of admission with newly diagnosed afib with RVR and NSTEMI. Troponin on admission 7 --> 16 --> 16. CTH suggestive of a left HIGHER EDUCATION ADMINISTRATOR infarction. She was started on heparin drip goal pTT 50-60 no bolus and antiplatelet agent, admitted to ICU for further care, stable overnight. vision loss palpitations SOB Past Medical History Medical History: high cholesterol Social History Alcohol Use: none Smoking Status: Never smoker Drug Use: none Exam/Review of Systems Vital Signs Vitals Vital Signs Date Time Temp Pulse Resp B/P Pulse Ox O2 Delivery O2 Flow Rate FiO2 10/03/16 17:30 87 24 149/80 97 10/03/16 17:00 Nasal Cannula 10/03/16 13:00 1.0 10/03/16 12:00 98.3 Intake and Output 10/02/16 10/02/16 10/03/16 15:00 23:00 07:00 Intake Total 12 ml 60.0 ml Output Total 350 ml Balance 12 ml -290.0 ml Exam awake alert oriented to self hospital right visuospatial neglect and field cut no aphasia following commands CN: NARESH, right field cut, right facial droop, tongue midline Motor: right arm and leg drift to bed can maintain for few seconds left is intact FTN poor cooperation Results Result Diagram: 10/03/16 0456 10/03/16 0456 Results 24 hrs Laboratory Tests Test 10/03/16 00:48 10/03/16 03:15 10/03/16 04:56 10/03/16 11:29 Activated Partial Thromboplast Time > 180.0 *H 77.6 *H 47.9 H 54.3 H White Blood Count 6.6 Red Blood Count 3.72 L Hemoglobin 11.8 L Hematocrit 35.2 L Mean Corpuscular Volume 94.6 Mean Corpuscular Hemoglobin 31.7 Mean Corpuscular Hemoglobin Concent 33.5 Red Cell Distribution Width 14.4 Platelet Count 216 Mean Platelet Volume 10.5 H Neutrophils % 72.2 Lymphocytes % 18.5 Monocytes % 7.6 Eosinophils % 0.6 Basophils % 0.9 Nucleated Red Blood Cells % 0.0 Neutrophils # (Manual) 4.8 Lymphocytes # 1.2 Monocytes # 0.5 Eosinophils # 0.0 Basophils # 0.1 Nucleated Red Blood Cells # 0.0 Sodium Level 138 Potassium Level 4.4 Chloride Level 96 L Carbon Dioxide Level 27 Anion Gap 19 H Blood Urea Nitrogen 19 Creatinine 1.00 Glucose Level 93 Calcium Level 8.8 Total Bilirubin 1.5 H Direct Bilirubin 0.00 Indirect Bilirubin 1.5 H Aspartate Amino Transf (AST/SGOT) 116 H Alanine Aminotransferase (ALT/SGPT) 38 Alkaline Phosphatase 55 Creatine Kinase 496 H Creatine Kinase Index 5.6 Creatinine Kinase MB (Mass) 27.80 H Troponin I 16.700 *H Total Protein 6.8 Albumin 3.7 Globulin 3.10 Albumin/Globulin Ratio 1.19 Triglycerides Level 66 Cholesterol Level 103 LDL Cholesterol, Calculated 37 HDL Cholesterol 53 Cholesterol/HDL Ratio 1.9 Thyroid Stimulating Hormone (TSH) 3.470 Free Thyroxine Index 2.21 Thyroxine (T4) 4.6 L Triiodothyronine (T3) Uptake 48.0 H Medications Medications Current Medications Aspirin (Aspirin) 81 mg DAILY PO Last administered on 10/03/16 11:01; Admin Dose 81 MG; Start 10/03/16 at 09:00 Atorvastatin Calcium (Lipitor) 80 mg HS PO Last administered on 10/02/16 23:19 ; Admin Dose 80 MG; Start 10/02/16 at 21:00 Metoprolol Tartrate (Lopressor) 25 mg BID PO Last administered on 10/03/16 11: 01; Admin Dose 25 MG; Start 10/02/16 at 21:00 Ondansetron HCl (Zofran Inj) 4 mg Q6H PRN IV NAUSEA AND/OR VOMITING; Start at 15:00 Morphine Sulfate (morphine) 2 mg Q4H PRN IV SEVERE PAIN LEVEL 7-10; Start 10/02 at 15:00 Hydralazine HCl (Apresoline) 10 mg Q4H PRN IV SBP >160; Start 10/02/16 at 15:00 Zolpidem Tartrate 5 mg 5 mg HS PRN PO INSOMNIA Last administered on 10/03/16 02:02; Admin Dose 5 MG; Start 10/02/16 at 15:30 Levofloxacin/ Dextrose (Levaquin 250 Mg/ D5W 50 ml (Pmx)) 50 ml @ 50 mls/hr Q24H IVPB ; Start 10/03/16 at 17:00 Famotidine (Pepcid Iv) 20 mg DAILY IV ; Start 10/04/16 at 09:00 LILIAN WALTER MD Oct 03, 2016 17:55
[2016-10-03] MEDS: LEVOFLOXACIN 250MG/D5W (PMX) 50 ML IVPB SCH (18:38)
[2016-10-03] MEDS: ATORVASTATIN 80 MG TAB PO SCH (20:25)
[2016-10-03] MEDS ORDERED: SOD CHLORIDE 0.9% 100 ML ONE (20:58)
[2016-10-03] MEDS ORDERED: IOHEXOL 100 ML ONE (20:58)
[2016-10-03] MEDS ORDERED: IOHEXOL 350MG/ML 50 ML BTL ONE (20:58)
[2016-10-04] VITALS (23 sets, daily range): BP systolic 117–155; BP diastolic 60–90; PULSE 71–91; RESP 15–27
[2016-10-04 05:17] LABS: BASOPHIL # 0.1 10^3/ul (0.0-0.1); BASOPHILS % 1.1 % (0.0-2.0); EOSINOPHILS # 0.1 10^3/ul (0.0-0.5); EOSINOPHILS % 1.2 % (0.0-7.0); HEMATOCRIT 35.5 % (37.0-47.0); HEMOGLOBIN 11.6 g/dl (12.0-16.0); LYMPHOCYTES # 1.7 10^3/ul (0.8-2.9); MEAN CORPUSCULAR HEMOGLOBIN 30.9 pg (29.0-33.0); MEAN CORPUSCULAR HGB CONC 32.7 g/dl (32.0-37.0); MEAN CORPUSCULAR VOLUME 94.7 fl (82.0-101.0); MONOCYTE # 0.6 10^3/ul (0.3-0.9); MONOCYTES % 8.9 % (0.0-11.0); NEUTROPHILS % 63.6 % (39.0-77.0); PLATELET COUNT 206 10^3/UL (140-415); RED BLOOD COUNT 3.75 10^6/ul (4.20-5.40); RED CELL DISTRIBUTION WIDTH 14.4 % (11.5-14.5); WHITE BLOOD COUNT 6.6 10^3/ul (4.8-10.8)
[2016-10-04 05:36] LABS: ALBUMIN 3.6 g/dl (3.3-4.9); BILIRUBIN,INDIRECT 1.6 mg/dl (0-1.1); BILIRUBIN,TOTAL 1.6 mg/dl (0.2-1.3); TOTAL PROTEIN 6.5 g/dl (6.1-8.1)
[2016-10-04 05:45] LABS: CALCIUM 8.6 mg/dl (8.4-10.2); CREATININE 1.1 mg/dl (0.44-1.00); MAGNESIUM 2.2 mg/dl (1.7-2.5); PHOSPHORUS 3.8 mg/dl (2.5-4.9); POTASSIUM 3.9 mmol/L (3.5-5.1)
[2016-10-04] MEDS: ASPIRIN 81 MG TAB PO SCH ×2 (08:09→08:22)
[2016-10-04] MEDS: METOPROLOL 25 MG TAB PO SCH (08:10)
[2016-10-04] MEDS ORDERED: FAMOTIDINE 20 MG INJ IV SCH (09:00)
--- NOTE | 2016-10-04 09:56 | DS ---
Date/Time of Note Date/Time of Note DATE: 10/04/16 TIME: 09:52 Discharge Summary Admission/Discharge Info Admit Date/Time Oct 02, 2016 at 13:09 Discharge Date/Time Patient Condition: Stable Hx of Present Illness Patient is a 70-year-old Belgian female who presents with a past medical history of hypertension and dyslipidemia complaining of new onset right-sided blurry vision as well as palpitations on and off for the past 4-5 days. Patient according to family members has no history of heart palpitations and does not know any other of her medications or her medical conditions. Patient did have some medications at bedside and is able to provide the name of her primary care provider,Dr. Goldberg. The patient states that although the palpitations have been on and off, she has no chest pain at this time, also states that patient's new onset blurry vision which began approximately 4 AM this morning has significantly improved, however patient is not able to see as clear as before still. Currently the patient is not short of breath, no chest pain, no nausea, no vomiting, no other acute complaints PMH: Hypertension, dyslipidemia, insomnia PSH: None Social: Denies smoking drinking or drugs Meds: Plavix 75 mg, simvastatin 20 mg, temazepam 15 mg as needed for sleep Hospital Course Patient is a 70-year-old Belgian female who presented originally to [facility] complaining of palpitations and right eye blurriness. 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 Patient was also found to have atrial fibrillation with RVR that was controlled with diltiazem. Cardiology and neurology were consulted. Cardiology trend troponins which went up to 16 before downtrending, patient had no chest pain or shortness of breath during this entire encounter. Upon discussion with cardiology and neurology it is believed that the patient had emboli resulting from patient's paroxysmal atrial fibrillation which may have showered into her coronary arteries and her brain. Upon initial evaluation it was stated that the A. fib was new onset, however upon speaking with her primary care physician , she was found to have atrial fibrillation in [facility] many years ago however anticoagulation was not chosen due to a fall risk as patient does have a history of frequent falls. This the CVA was found after getting a CT and MRI of the brain. Also done was a carotid Doppler which showed possible 50-69% stenosis of the internal carotid on the left and a neck MRA was also done which also showed evidence of possible left carotid high-grade stenosis or occlusion. CT angio neck was done overnight however results are pending at this time. Patient's original complaint of palpitations have resolved since admission and blurry vision in the right eye has subsequently improved day by day. Patient was put on a trial of levofloxacin due to signs of possible sinusitis seen on CT , and possible involvement with patient's blurry vision, will be discontinued upon transfer as current signs and symptoms do not correlate with sinusitis. Patient was scheduled for cardiac cath however due to insurance reasons patient will be transferred to another facility where she should receive cardiac cath based on the recommendations of our blending coordinator due to her significantly elevated troponin level. She should also get continued neurological care. Discharge Diagnosis Non-ST elevated [place] Acute bilateral occipital lobe and right posterior temporal lobe infarct. Small acute infarcts in left frontal lobe, bilateral parietal lobes, and bilateral cerebral hemispheres. Atrial fibrillation with RVR, controlled New onset right eye vision loss, resolving Elevated troponin Elevated BNP Small chronic right parietal infarct Chronic left guerra radiata lacunar infarct sinus wall thickening, possible sinusitis ECHO 1. Normal left ventricular cavity size. Mild concentric left ventricular hypertrophy. Moderate to severe left ventricular systolic dysfunction. Ejection fraction is visually estimated at 35 %. Abnormal Diastolic Function. 2. Normal right ventricular size. Normal right ventricular systolic function. 3. There is moderate enlargement of left atrium. 4. There is mild enlargement of right atrium. 5. Mild to moderate mitral valve regurgitation. 6. No hemodynamically significant aortic stenosis by doppler. Mild aortic valve regurgitation. 7. Estimated peak PA systolic pressure 40 mmHg. There is mild to moderate tricuspid regurgitation. 8. There is mild pulmonic regurgitation. 9. Normal pericardium with no significant pericardial effusion. Miguel MRI FINDINGS: No acute parenchymal hemorrhage or midline shift. Cortical diffusion restriction of the bilateral occipital lobes and right posterior temporal lobe. Additional smaller scattered foci of diffusion restriction identified in the left frontal lobe, bilateral parietal lobes, and bilateral cerebellar hemispheres. Chronic lacunar infarcts of the left guerra radiata are seen. Chronic right parietal cortical infarct. Scattered subcortical, deep, and periventricular white matter T2-weighted/FLAIR hyperintensities are consistent with chronic microvascular ischemic disease. No suspicious parenchymal hypointense signal abnormalities are seen on the GRE images to suggest the presence of blood degradation products. The ventricles are stable size with mild volume loss noted.. Bilateral sphenoid sinus mucosal thickening. IMPRESSION: Acute cortical infarcts of the bilateral occipital lobes and right posterior temporal lobe with additional smaller acute infarcts in the left frontal lobe, bilateral parietal lobes, and bilateral cerebellar hemispheres. The findings may be due to a recent embolic event. Chronic microvascular disease. Chronic right parietal cortical infarct and chronic left guerra radiata lacunar infarcts. Mild volume loss. Neck MRA The common carotid and vertebral arterial origins are obscured by artifact. No significant stenosis of the mid to distal segment of the bilateral common carotid arteries. No significant stenosis of the right cervical internal carotid artery. Absence of flow signal of the left cervical internal carotid artery. The visualized portions of the bilateral cervical vertebral arteries show normal flow signal. IMPRESSION: No flow signal seen within the proximal left internal carotid artery concerning for high-grade stenosis or occlusion. Consider CT angiogram head and neck for further evaluation. No other significant cervical arterial stenosis identified. Home Meds Reported Medications Simvastatin* (Zocor*) 20 Mg Tablet, 20 MG PO QHS, #30 TAB 10/02/16 Clopidogrel Bisulfate (Clopidogrel) 75 Mg Tablet, 75 MG PO DAILY, #30 TAB 10/02/16 Temazepam* (Temazepam*) 15 Mg Capsule, 15 MG PO HS Y for INSOMNIA, CAP 10/02/16 Primary Care Provider Jeffrey Goldberg Time spent on discharge: > 30 minutes Pending Labs Laboratory Tests Test 10/03/16 11:29 10/03/16 19:10 10/04/16 00:50 10/04/16 04:15 Activated Partial Thromboplast Time 54.3Sec (25.0-35.0) 98.0Sec (25.0-35.0) 74.8Sec (25.0-35.0) Total Bilirubin 1.6mg/dl (0.2-1.3) Direct Bilirubin 0.00mg/dl (0.00-0.20) Indirect Bilirubin 1.6mg/dl (0-1.1) Aspartate Amino Transf (AST/SGOT) 77IU/L (15-46) Alanine Aminotransferase (ALT/SGPT) 32IU/L (13-69) Alkaline Phosphatase 53IU/L (42-121) Total Protein 6.5g/dl (6.1-8.1) Albumin 3.6g/dl (3.3-4.9) Test 10/04/16 04:50 10/04/16 07:15 White Blood Count 6.610^3/ul (4.8-10.8) Red Blood Count 3.7510^6/ul (4.20-5.40) Hemoglobin 11.6g/dl (12.0-16.0) Hematocrit 35.5% (37.0-47.0) Mean Corpuscular Volume 94.7fl (82.0-101.0) Mean Corpuscular Hemoglobin 30.9pg (29.0-33.0) Mean Corpuscular Hemoglobin Concent 32.7g/dl (32.0-37.0) Red Cell Distribution Width 14.4% (11.5-14.5) Platelet Count 11099^3/UL (140-415) Mean Platelet Volume 10.0fl (7.4-10.4) Neutrophils % 63.6% (39.0-77.0) Lymphocytes % 25.0% (15.0-51.0) Monocytes % 8.9% (0.0-11.0) Eosinophils % 1.2% (0.0-7.0) Basophils % 1.1% (0.0-2.0) Nucleated Red Blood Cells % 0.0/100WBC (0.0-0.0) Neutrophils # (Manual) 4.210^3/ul (1.7-7.5) Lymphocytes # 1.710^3/ul (0.8-2.9) Monocytes # 0.610^3/ul (0.3-0.9) Eosinophils # 0.110^3/ul (0.0-0.5) Basophils # 0.110^3/ul (0.0-0.1) Nucleated Red Blood Cells # 0.010^3/ul (0.0-0.0) Sodium Level 134mmol/L (135-144) Potassium Level 3.9mmol/L (3.5-5.1) Chloride Level 100mmol/L (97-110) Carbon Dioxide Level 27mmol/L (21-31) Anion Gap 11 (8-16) Blood Urea Nitrogen 18mg/dl (7-20) Creatinine 1.10mg/dl (0.44-1.00) Glucose Level 83mg/dl (70-220) Calcium Level 8.6mg/dl (8.4-10.2) Phosphorus Level 3.8mg/dl (2.5-4.9) Magnesium Level 2.2mg/dl (1.7-2.5) Activated Partial Thromboplast Time 81.0Sec (25.0-35.0) MITZY STARKEY Oct 04, 2016 09:56
--- NOTE | 2016-10-04 10:57 | RADRPT ---
PROCEDURE: CT Angiogram of the head and neck with intravenous contrast CLINICAL INDICATION: Left internal carotid artery stenosis. COMPARISON: MRA 10/03/2016. Ultrasound 10/02/2016. TECHNIQUE: CT angiogram of the head and neck was obtained. Sagittal and coronal reformations and ma ximum intensity projection reconstructions were provided. Images were obtained before and after the uneventful administration of 110 mL Omnipaque 350 intravenous contrast. Direct measurements of vesse l diameters was made in reference to measurements of the distal internal carotid artery diameter. DOSE: The estimated administered radiation dose was CTDI vol = 41, 16 mGy. DLP = 627 mGy-cm. One or more of the following dose reduction techniques were used: automated exposure control, adjustment o f the mA and/or kV according to patient size, or use of iterative reconstruction technique. FINDINGS: BRAIN Parenchyma: Continued evolution of recent infarcts within the left frontal lobe, right posterior tem poral lobe, left occipital lobe, and both cerebellar hemispheres. No hemorrhage Ventricles: Mild generalized volume with proportionate ex vacuo ventricular dilation. Extra-axial spaces: No herniation or midline shift. Paranasal sinuses: Mild paranasal sinus mucosal thickening, most notable in the sphenoid sinuses. Mastoid air cells: Clear. Bones: Normal Additional comment: None. CEREBRAL ANGIOGRAM Aneurysm: No aneurysm identified. Anterior circulation: Internal carotid arteries: On the right, moderate calcified atherosclerotic plaque results in 25-50% luminal narrowing within the cavernous and supraclinoid segments. On the left, severe atherosclerot ic plaque results in 50% luminal narrowing within the cavernous and proximal supraclinoid segments. Anterior cerebral arteries: Severe stenosis of the proximal right A2 artery (series 2, image 1 251). Moderate irregularity and narrowing of both A1 arteries (series 2, image 157). Middle cerebral arteries: Moderate irregularity and mild narrowing of the distal right M1 and proxim al right and to artery (series 2, image 165). No flow-limiting stenosis. Posterior cerebral arteries: No flow-limiting stenosis. Anterior communicating artery: No flow-limiting stenosis. Posterior communicating arteries: Absent or diminutive. Posterior circulation: Basilar artery: No flow-limiting stenosis. V3/V4 vertebral arteries: No flow-limiting stenosis. Dural venous sinuses: Patent. NECK ANGIOGRAM Aorta: No flow-limiting stenosis. Right common carotid artery: No flow-limiting stenosis. Right internal carotid artery: Minimal atherosclerotic plaque at the carotid bulb. No flow-limiting stenosis Right external carotid artery: No flow-limiting stenosis. Left common carotid artery: Moderate calcified atherosclerotic plaque results in 50% luminal narrowi ng. No flow-limiting stenosis. Left internal carotid artery: Marked calcified atherosclerotic plaque results in greater than 95% l uminal narrowing (series 2, image 274). The remainder of the internal carotid artery is mildly narro wed.No flow-limiting stenosis. Left external carotid artery: No flow-limiting stenosis. V1/V2 vertebral arteries: Low grade short segment narrowing involving the V1 segment of the right ve rtebral artery (series 2, image 392). Low grade narrowing of the left vertebral artery at its origin . Vertebral artery dominance: Codominant. NECK Soft tissues: Normal. Bones: Normal. Lung apices: Clear. Additional comment: None. IMPRESSION: 1. Continued evolution of bilateral cerebral infarctions. No hemorrhagic conversion. 2. Critical greater than 95% stenosis at the left internal carotid artery origin/carotid bifurcation . The left internal carotid artery is not entirely occluded. 3. Intracranial atherosclerosis with mild to moderate luminal narrowing involving the cavernous and supraclinoid internal carotid arteries, middle cerebral arteries, and anterior cerebral arteries. 4. Low grade narrowing involving the V1 segments of both vertebral arteries. RPTAT: PP Physician Maria R Date Time Electronically viewed and signed by Physician Maria R on 10/04/2016 08:22 /
--- NOTE | 2016-10-04 11:00 | RADRPT ---
PROCEDURE: CT Angiogram of the head and neck with intravenous contrast CLINICAL INDICATION: Left internal carotid artery stenosis. COMPARISON: MRA 10/03/2016. Ultrasound 10/02/2016. TECHNIQUE: CT angiogram of the head and neck was obtained. Sagittal and coronal reformations and max imum intensity projection reconstructions were provided. Images were obtained before and after the u neventful administration of 110 mL Omnipaque 350 intravenous contrast. Direct measurements of vessel diameters was made in reference to measurements of the distal internal carotid artery diameter. DOSE: The estimated administered radiation dose was CTDI vol = 41, 16 mGy. DLP = 627 mGy-cm. One or more of the following dose reduction techniques were used: automated exposure control, adjustment of the mA and/or kV according to patient size, or use of iterative reconstruction technique. FINDINGS: BRAIN Parenchyma: Continued evolution of recent infarcts within the left frontal lobe, right posterior tem poral lobe, left occipital lobe, and both cerebellar hemispheres. No hemorrhage Ventricles: Mild generalized volume with proportionate ex vacuo ventricular dilation. Extra-axial spaces: No herniation or midline shift. Paranasal sinuses: Mild paranasal sinus mucosal thickening, most notable in the sphenoid sinuses. Mastoid air cells: Clear. Bones: Normal Additional comment: None. CEREBRAL ANGIOGRAM Aneurysm: No aneurysm identified. Anterior circulation: Internal carotid arteries: On the right, moderate calcified atherosclerotic plaque results in 25-50% luminal narrowing within the cavernous and supraclinoid segments. On the left, severe atherosclerot ic plaque results in 50% luminal narrowing within the cavernous and proximal supraclinoid segments. Anterior cerebral arteries: Severe stenosis of the proximal right A2 artery (series 2, image 1 251). Moderate irregularity and narrowing of both A1 arteries (series 2, image 157). Middle cerebral arteries: Moderate irregularity and mild narrowing of the distal right M1 and proxim al right and to artery (series 2, image 165). No flow-limiting stenosis. Posterior cerebral arteries: No flow-limiting stenosis. Anterior communicating artery: No flow-limiting stenosis. Posterior communicating arteries: Absent or diminutive. Posterior circulation: Basilar artery: No flow-limiting stenosis. V3/V4 vertebral arteries: No flow-limiting stenosis. Dural venous sinuses: Patent. NECK ANGIOGRAM Aorta: No flow-limiting stenosis. Right common carotid artery: No flow-limiting stenosis. Right internal carotid artery: Minimal atherosclerotic plaque at the carotid bulb. No flow-limiting stenosis Right external carotid artery: No flow-limiting stenosis. Left common carotid artery: Moderate calcified atherosclerotic plaque results in 50% luminal narrowi ng. No flow-limiting stenosis. Left internal carotid artery: Marked calcified atherosclerotic plaque results in greater than 95% jairo omar narrowing (series 2, image 274). The remainder of the internal carotid artery is mildly narrow ed. No flow-limiting stenosis. Left external carotid artery: No flow-limiting stenosis. V1/V2 vertebral arteries: Low grade short segment narrowing involving the V1 segment of the right ve rtebral artery (series 2, image 392). Low grade narrowing of the left vertebral artery at its origin . Vertebral artery dominance: Codominant. NECK Soft tissues: Normal. Bones: Normal. Lung apices: Clear. Additional comment: None. IMPRESSION: 1. Continued evolution of bilateral cerebral infarctions. No hemorrhagic conversion. 2. Critical greater than 95% stenosis at the left internal carotid artery origin/carotid bifurcation . The left internal carotid artery is not entirely occluded. 3. Intracranial atherosclerosis with mild to moderate luminal narrowing involving the cavernous and supraclinoid internal carotid arteries, middle cerebral arteries, and anterior cerebral arteries. 4. Low grade narrowing involving the V1 segments of both vertebral arteries. RPTAT: PP Physician Maria R Date Time Electronically viewed and signed by Physician Maria R on 10/04/2016 09:39 /
--- NOTE | 2016-10-04 11:09 | CONS ---
Date/Time of Note Date/Time of Note DATE: 10/04/16 TIME: 11:08 Consult Date/Type/Reason Admit Date/Time Oct 02, 2016 at 13:09 Initial Consult Date 10/03/16 Type of Consultation: Neurology Reason for Consultation CVA Ordering Provider: MITZY STARKEY Subjective stable in ICU overnight on heparin drip Objective Vital Signs Date Time Temp Pulse Resp B/P Pulse Ox O2 Delivery O2 Flow Rate FiO2 10/04/16 10:30 71 22 97 10/04/16 10:00 127/74 Room Air 10/04/16 09:30 1.0 10/04/16 07:30 97.8 Intake and Output 10/03/16 10/03/16 10/04/16 15:00 23:00 07:00 Intake Total 33.5 ml 278.0 ml 141.0 ml Output Total 500 ml 550 ml 450 ml Balance -466.5 ml -272.0 ml -309.0 ml Exam awake alert oriented to self hospital right visuospatial neglect and field cut no aphasia following commands CN: NARESH, right field cut, right facial droop, tongue midline Motor: right arm and leg drift to bed can maintain for few seconds left is intact FTN poor cooperation Results/Medications Result Diagram: 10/04/16 0450 10/04/16 0450 Results 24 hrs Laboratory Tests Test 10/03/16 11:29 10/03/16 19:10 10/04/16 00:50 10/04/16 04:15 Activated Partial Thromboplast Time 54.3 H 98.0 *H 74.8 *H Total Bilirubin 1.6 H Direct Bilirubin 0.00 Indirect Bilirubin 1.6 H Aspartate Amino Transf (AST/SGOT) 77 H Alanine Aminotransferase (ALT/SGPT) 32 Alkaline Phosphatase 53 Total Protein 6.5 Albumin 3.6 Test 10/04/16 04:50 10/04/16 07:15 White Blood Count 6.6 Red Blood Count 3.75 L Hemoglobin 11.6 L Hematocrit 35.5 L Mean Corpuscular Volume 94.7 Mean Corpuscular Hemoglobin 30.9 Mean Corpuscular Hemoglobin Concent 32.7 Red Cell Distribution Width 14.4 Platelet Count 206 Mean Platelet Volume 10.0 Neutrophils % 63.6 Lymphocytes % 25.0 Monocytes % 8.9 Eosinophils % 1.2 Basophils % 1.1 Nucleated Red Blood Cells % 0.0 Neutrophils # (Manual) 4.2 Lymphocytes # 1.7 Monocytes # 0.6 Eosinophils # 0.1 Basophils # 0.1 Nucleated Red Blood Cells # 0.0 Sodium Level 134 L Potassium Level 3.9 Chloride Level 100 Carbon Dioxide Level 27 Anion Gap 11 # Blood Urea Nitrogen 18 Creatinine 1.10 H Glucose Level 83 Calcium Level 8.6 Phosphorus Level 3.8 Magnesium Level 2.2 Activated Partial Thromboplast Time 81.0 *H Medications Current Medications Aspirin (Aspirin) 81 mg DAILY PO Last administered on 10/04/16 08:22; Admin Dose 81 MG; Start 10/03/16 at 09:00 Atorvastatin Calcium (Lipitor) 80 mg HS PO Last administered on 10/03/16 20:25 ; Admin Dose 80 MG; Start 10/02/16 at 21:00 Metoprolol Tartrate (Lopressor) 25 mg BID PO Last administered on 10/04/16 08: 10; Admin Dose 25 MG; Start 10/02/16 at 21:00 Ondansetron HCl (Zofran Inj) 4 mg Q6H PRN IV NAUSEA AND/OR VOMITING; Start at 15:00 Morphine Sulfate (morphine) 2 mg Q4H PRN IV SEVERE PAIN LEVEL 7-10; Start 10/02 at 15:00 Hydralazine HCl (Apresoline) 10 mg Q4H PRN IV SBP >160; Start 10/02/16 at 15:00 Zolpidem Tartrate 5 mg 5 mg HS PRN PO INSOMNIA Last administered on 10/03/16 22:22; Admin Dose 5 MG; Start 10/02/16 at 15:30 Levofloxacin/ Dextrose (Levaquin 250 Mg/ D5W 50 ml (Pmx)) 50 ml @ 50 mls/hr Q24H IVPB Last administered on 10/03/16 18:38; Admin Dose 50 MLS/HR; Start at 17:00 Famotidine (Pepcid Iv) 20 mg DAILY IV Last administered on 10/04/16 08:23; Admin Dose 20 MG; Start 10/04/16 at 09:00 Assessment/Plan Chief Complaint/Hosp Course 70 yo female with cardioembolic CVA, newly diagnosed afib with bilateral [employer] territory infarcts , bilateral frontal and bilateral cerebellar on heparin drip and antiplatelets, NSTEMI, troponins now trending down. MRI Brain and MRA Head reviewed. Acute cortical infarcts of the bilateral occipital lobes and right posterior temporal lobe with additional smaller acute infarcts in the left frontal lobe, bilateral parietal lobes, and bilateral cerebellar hemispheres. The findings may be due to a recent embolic event. Chronic microvascular disease. Chronic right parietal cortical infarct and chronic left guerra radiata lacunar infarcts. Mild volume loss. Limited flow signal in the left internal carotid artery, left MCA and bilateral CELIO likely related to proximal left ICA high-grade stenosis or occlusion. Recommendations: continue heparin drip pTT 50-60 no bolus continue for a few days and close neurologic monitoring will transition to Apixaban ECHO LDL at goal, check HBA1C recommend checking CTA Head/Neck to evaluate for Left ICA stenosis although etiology of this stroke appears to be likely secondary to cardioembolism DVT ppx on heparin PT/OT/Speech c/w icu level monitoring- patient being transferred to another hospital due to insurance reasons Problems: LILIAN WALTER MD Oct 04, 2016 11:09
[2016-10-04] MEDS: HEPARIN 25000 UNITS/250 ML 250 ML IV SCH ×2 (13:45→16:01)
[2016-10-04] MEDS ORDERED: METO-448 PO (14:26)
[2016-10-04] MEDS ORDERED: ATOR80TA75 PO (14:26)
[2016-10-04] MEDS ORDERED: ASPI81TA3 PO (14:26)
--- NOTE | 2016-10-04 15:49 | CONS ---
Date/Time of Note Date/Time of Note DATE: 10/04/16 TIME: 15:47 Assessment/Plan Assessment/Plan Additional Assessment/Plan CVA, likely embolic Atrial fibrillation with rapid ventricular rates, improved Cardiomyopathy with ejection fraction 35% Non-ST elevation TN Carotid artery stenosis -Blood pressure trend remained stable, continue aspirin therapy and anticoagulation if no complication. Continue high-dose statin therapy if no complication. Heart rate well controlled on beta-jennifer. Would recommend transitioning to Coreg in the next 1-2 days. Would start JONAH inhibitor the next 1-2 days as well after period of permissive hypertension. Will need vascular surgery evaluation of carotid artery stenosis. Secondary to insurance reasons, patient plan for transfer to another facility. Consultation Date/Type/Reason Admit Date/Time Oct 02, 2016 at 13:09 Type of Consultation: cv Referring Provider: MITZY STARKEY 24 HR Interval Summary Free Text/Dictation Denies chest pain, shortness of breath, vision is improved. Denies dizziness or lightheadedness Exam/Review of Systems Vital Signs Vitals Vital Signs Date Time Temp Pulse Resp B/P Pulse Ox O2 Delivery O2 Flow Rate FiO2 10/04/16 15:00 82 26 132/82 97 Room Air 10/04/16 12:00 98.0 10/04/16 09:30 1.0 Intake and Output 10/03/16 10/03/16 10/04/16 15:00 23:00 07:00 Intake Total 33.5 ml 278.0 ml 141.0 ml Output Total 500 ml 550 ml 450 ml Balance -466.5 ml -272.0 ml -309.0 ml Exam Family at bedside, no apparent distress Constitutional: alert, oriented Head: normocephalic Respiratory: other (Coarse breath sounds bilaterally, no wheezing) Cardiovascular: irregular rhythm, other (S1-S2 heard), systolic murmur Gastrointestinal: bowel sounds, non-tender, soft Extremities: edema (Trace) Results Result Diagram: 10/04/160 10/04/16 045 Results 24 hrs Laboratory Tests Test 10/03/16 19:10 10/04/16 00:50 10/04/16 04:15 10/04/16 04:50 Activated Partial Thromboplast Time 98.0 *H 74.8 *H Total Bilirubin 1.6 H Direct Bilirubin 0.00 Indirect Bilirubin 1.6 H Aspartate Amino Transf (AST/SGOT) 77 H Alanine Aminotransferase (ALT/SGPT) 32 Alkaline Phosphatase 53 Total Protein 6.5 Albumin 3.6 White Blood Count 6.6 Red Blood Count 3.75 L Hemoglobin 11.6 L Hematocrit 35.5 L Mean Corpuscular Volume 94.7 Mean Corpuscular Hemoglobin 30.9 Mean Corpuscular Hemoglobin Concent 32.7 Red Cell Distribution Width 14.4 Platelet Count 206 Mean Platelet Volume 10.0 Neutrophils % 63.6 Lymphocytes % 25.0 Monocytes % 8.9 Eosinophils % 1.2 Basophils % 1.1 Nucleated Red Blood Cells % 0.0 Neutrophils # (Manual) 4.2 Lymphocytes # 1.7 Monocytes # 0.6 Eosinophils # 0.1 Basophils # 0.1 Nucleated Red Blood Cells # 0.0 Sodium Level 134 L Potassium Level 3.9 Chloride Level 100 Carbon Dioxide Level 27 Anion Gap 11 # Blood Urea Nitrogen 18 Creatinine 1.10 H Glucose Level 83 Calcium Level 8.6 Phosphorus Level 3.8 Magnesium Level 2.2 Test 10/04/16 07:15 10/04/16 14:38 Activated Partial Thromboplast Time 81.0 *H 54.6 H Medications Medications Current Medications Aspirin (Aspirin) 81 mg DAILY PO Last administered on 10/04/16 08:22; Admin Dose 81 MG; Start 10/03/16 at 09:00 Atorvastatin Calcium (Lipitor) 80 mg HS PO Last administered on 10/03/16 20:25 ; Admin Dose 80 MG; Start 10/02/16 at 21:00 Metoprolol Tartrate (Lopressor) 25 mg BID PO Last administered on 10/04/16 08: 10; Admin Dose 25 MG; Start 10/02/16 at 21:00 Ondansetron HCl (Zofran Inj) 4 mg Q6H PRN IV NAUSEA AND/OR VOMITING; Start at 15:00 Morphine Sulfate (morphine) 2 mg Q4H PRN IV SEVERE PAIN LEVEL 7-10; Start 10/02 at 15:00 Hydralazine HCl (Apresoline) 10 mg Q4H PRN IV SBP >160; Start 10/02/16 at 15:00 Zolpidem Tartrate 5 mg 5 mg HS PRN PO INSOMNIA Last administered on 10/03/16 22:22; Admin Dose 5 MG; Start 8/15/17 at 15:30 Levofloxacin/ Dextrose (Levaquin 250 Mg/ D5W 50 ml (Pmx)) 50 ml @ 50 mls/hr Q24H IVPB Last administered on 10/03/16 18:38; Admin Dose 50 MLS/HR; Start at 17:00 Famotidine (Pepcid Iv) 20 mg DAILY IV Last administered on 10/04/16 08:23; Admin Dose 20 MG; Start 10/04/16 at 09:00 Mayito Bull DO Oct 04, 2016 15:49
[2016-10-04] MEDS: LEVOFLOXACIN 250MG/D5W (PMX) 50 ML IVPB SCH (17:12)
[2016-10-05] MEDS ORDERED: FAMOTIDINE 20 MG TAB PO SCH (09:00)
--- NOTE | 2016-10-05 13:41 | RADRPT ---
Vent Rate: 73 bpm RR Interval: 0 msec NC Interval: 0 msec QRS Duration: 92 msec QT Interval: 498 msec QTC Interval: 548 msec P-R-T [place]: 0 - -58 - 0 degrees Atrial fibrillation Left anterior fascicular block Voltage criteria for left ventricular hypertrophy T wave abnormality, consider inferior ischemia or digitalis effect T wave abnormality, consider anterolateral ischemia or digitalis effect Prolonged QT Abnormal ECG Electronically Signed By: Matt Rincon [id number]
== END 2016-10-04 18:45 | disposition short-term general hospital (02) | DRG 64 ==
LOC: E/R 08:34 → ICU 13:09
PROVIDERS: ADMIT Hospitalist; ATTEND Hospitalist
DX: I63.433 Cerebral infarction due to embolism of bilateral posterior cerebral arteries (principal); I21.4 Non-ST elevation (NSTEMI) myocardial infarction; I42.9 Cardiomyopathy, unspecified; I10 Essential (primary) hypertension; I48.91 Unspecified atrial fibrillation; I63.49 Cerebral infarction due to embolism of other cerebral artery; I65.22 Occlusion and stenosis of left carotid artery; H54.61 Unqualified visual loss, right eye, normal vision left eye; E78.00 Pure hypercholesterolemia, unspecified; J32.3 Chronic sphenoidal sinusitis; R29.810 Facial weakness
CPT/HCPCS: 70450; 70496; 70498; 70544; 70549; 70551; 71010; 80048; 80053; 80061; 80076; 82550; 82553; 83735; 83880; 84100; 84436; 84443; 84479; 84484; 85025; 85610; 85730; 87081; 92610; 93005; 93306; 93880; 94664; 96365; 96366; 96372; 96375; J1940; C9113; J1644; J1956; J7030; Q9967

== ENCOUNTER 2017-06-11 06:07 | Emergency (ER) | END 2017-06-11 09:35 | disposition home or self-care (01) ==

== ENCOUNTER 2017-06-16 21:19 | Emergency (ER) | END 2017-06-17 04:59 | disposition short-term general hospital (02) ==